=== PATIENT | female | born 1960 ===

== ENCOUNTER 2018-05-22 08:03 | Day surgery (SDC) | payer OTHER ==
[2018-05-22] MEDS ORDERED: PERCOCET 5-3251 EACH PO (12:31)
[2018-05-22] MEDS ORDERED: POLY119PG PO (12:31)
== END 2018-05-22 17:10 | disposition home or self-care (01) ==
LOC: CIR.AMB 08:03
DX: K62.82 Dysplasia of anus (principal); A63.0 Anogenital (venereal) warts